=== PATIENT | female | born 1945 | race Caucasian/White ===

== ENCOUNTER 2017-08-23 07:58 | Day surgery (SDC) | payer MEDICARE, BC ==
[2017-08-23] MEDS ORDERED: Midazolam 1 MG/ML 2 ML SDV IV ONE ×5 (07:59→08:50)
[2017-08-23] MEDS ORDERED: fentaNYL 100 MCG/2 ML SDV IV ONE ×4 (07:59→08:52)
[2017-08-23] MEDS ORDERED: Midazolam 1 MG/ML 2 ML SDV ONE (08:05)
[2017-08-23] MEDS ORDERED: fentaNYL 100 MCG/2 ML SDV ONE (08:06)
[2017-08-23] MEDS ORDERED: Lactated Ringers 1,000 ML IV SCH (08:20)
--- NOTE | 2017-08-23 10:21 | OR ---
DATE: 08/23/2017 PREOPERATIVE DIAGNOSIS: Screening colonoscopy. POSTOPERATIVE DIAGNOSIS: Screening colonoscopy. PROCEDURE: Total colonoscopy. ANESTHESIA: Conscious sedation with IV Versed and fentanyl. SPECIMEN: None. OPERATIVE FINDINGS: Significant sigmoid diverticulosis with scattered diverticula throughout the entire colon. RECOMMENDATION: Followup screening colonoscopy in 10 years if able. However, the patient will be 81 years old at that time and might consider that she is not in the need for colonoscopy. INDICATION FOR PROCEDURE: This 71-year-old female is referred by AYAAN To, for evaluation of screening colonoscopy. PROCEDURE IN DETAIL: After adequate preparation, a colonoscope was inserted into the rectum. This was easily passed all the way through the cecum. Confirmation of the cecum was made by visualization of the ileocecal valve on palpation in the right lower quadrant. A photograph of the ileocecal valve was taken. The bowel prep was very good. On withdrawal of the scope, the only abnormality noted was scattered diverticula throughout the colon and moderate significant diverticulosis in the sigmoid. Rectal examination was normal. She has no significant internal hemorrhoid but does have external hemorrhoid tags. Air was suctioned from the colon, and the scope was removed. [facility] /[id number]
== END 2017-08-23 11:05 | disposition home or self-care (01) ==
LOC: DL.ENDO 07:58
PROVIDERS: ATTEND Surgery
DX: Z12.11 Encounter for screening for malignant neoplasm of colon (principal); K57.30 Diverticulosis of large intestine without perforation or abscess without bleeding; Z88.0 Allergy status to penicillin; Z79.899 Other long term (current) drug therapy
CPT/HCPCS: G0121; J2250; J3010; J7120; 45378

== ENCOUNTER 2024-01-14 16:23 | Emergency (ER) | payer MEDICARE, BC ==
[2024-01-14] MEDS: Orphenadrine 60 MG/2 ML Inj IM ONE (18:16)
[2024-01-14] MEDS: Dexamethasone 4 MG/ML SDV IM ONE (18:16)
[2024-01-14] MEDS: Take Home: Cyclobenzaprine 10 MG Tab, 4 Tab Pack PO ONE (18:23)
== END 2024-01-14 18:28 | disposition home or self-care (01) ==
LOC: DL.ED 16:23
DX: M54.32 Sciatica, left side (principal); I10 Essential (primary) hypertension; Z88.0 Allergy status to penicillin; Z88.1 Allergy status to other antibiotic agents; Z75.8 Other problems related to medical facilities and other health care; Z79.899 Other long term (current) drug therapy; Z90.710 Acquired absence of both cervix and uterus
CPT/HCPCS: 72100; 73502; 73562; 96372; 99283; A9270; J1100; J2360

== ENCOUNTER 2024-03-27 08:57 | Emergency (ER) | payer MEDICARE, BC ==
[2024-03-27] MEDS: Sodium Chloride 0.9% 1,000 ML IV ONE (09:35)
[2024-03-27] MEDS: Morphine 4 MG/ML Syringe IVPUSH ONE (10:18)
[2024-03-27] MEDS: Ondansetron 4 MG/2 ML SDV IVPUSH ONE (10:18)
[2024-03-27 10:20] LABS: BASOPHILS PERCENT AUTO 0.1 % (0.0-1.0); EOSINOPHILS PERCENT AUTO 0.6 % (1.0-3.0); HEMATOCRIT 36.6 % (37.0-47.0); HEMOGLOBIN 11.9 g/dL (12.0-16.0); MEAN CORPUSCULAR HEMOGLOBIN 33.5 pg (27.0-34.0); MEAN CORPUSCULAR HGB CONC 32.5 g/dL (33.0-35.0); MEAN CORPUSCULAR VOLUME 103.1 fL (80-100); MONOCYTES PERCENT AUTO 12.5 % (2-8); NEUTROPHILS PERCENT AUTO 74.8 % (42.2-75.2); PLATELET COUNT,PLT 401 10^3/uL (150-450); RED BLOOD CELL COUNT 3.55 10^6/uL (4.2-5.4); WHITE BLOOD CELL COUNT,WBC 15.5 10^3/uL (5.0-10.0)
[2024-03-27 10:34] LABS: APPEARANCE,URINE CLEAR (CLEAR); BILIRUBIN,URINE NEGATIVE (NEGATIVE); COLOR,URINE YELLOW (YELLOW); GLUCOSE,URINE NEGATIVE (NEGATIVE); KETONES,URINE NEGATIVE (NEGATIVE); LEUKOCYTE ESTERASE,URINE TRACE (NEGATIVE); NITRITE,URINE NEGATIVE (NEGATIVE); OCCULT BLOOD,URINE NEGATIVE (NEGATIVE); PROTEIN,URINE NEGATIVE (NEGATIVE); UROBILINOGEN,URINE 0.2 mg/dL (0.2-1.0)
[2024-03-27 10:43] LABS: ALBUMIN 2.8 g/dL (3.4-5.0); ANION GAP 10.9 mEq/L (7-13); BILIRUBIN TOTAL 0.5 mg/dL (0.2-1.0); BUN/CREATININE RATIO 15.6 (No establ ref range); CALCIUM 8.5 mg/dL (8.5-10.1); CREATININE 0.9 mg/dL (0.55-1.02); EST CRCL DRUG DOSING (CG) 43.3 mL/min; POTASSIUM,K 3.9 mmol/L (3.5-5.1); PROTEIN TOTAL,TP 6.3 g/dL (6.4-8.2)
[2024-03-27 10:44] LABS: A/G RATIO 0.8
[2024-03-27 10:48] LABS: AMORPHOUS SEDIMENT,URINE RARE /HPF (NOT SEEN); BACTERIA,URINE RARE /HPF (0-FEW/HPF); EPITHELIAL CELLS,URINE FEW /HPF (NOT SEEN); MUCUS,URINE FEW /LPF (NOT SEEN); RBC,URINE 0-5 /HPF (0-5)
== END 2024-03-27 12:18 | disposition home or self-care (01) ==
LOC: DL.ED 08:57
DX: K57.32 Diverticulitis of large intestine without perforation or abscess without bleeding (principal); I10 Essential (primary) hypertension; Z90.710 Acquired absence of both cervix and uterus; Z79.899 Other long term (current) drug therapy; Z88.0 Allergy status to penicillin; Z88.1 Allergy status to other antibiotic agents
CPT/HCPCS: 36415; 74176; 80053; 81001; 83690; 85025; 87086; 96361; 96374; 96375; 99284-25; J2270; J2405; J7030